=== PATIENT | female | born 1960 | race Caucasian/White ===

== ENCOUNTER 2023-05-31 19:30 | Emergency (ER) | payer OTHER, SELFPAY ==
[2023-05-31 19:34] VITALS: BP 170/85
--- NOTE | 2023-05-31 21:25 | ED.GENMED ---
History of Present Illness
General
Chief Complaint: Fall
Source: patient
Exam Limitations: none
Time Seen by Provider: 05/31/23 21:16
Nursing documentation reviewed up to this point in time: agreed with
Travel History
Have you had any contact with someone who has COVID-19?: No
Do you have any symptoms of coronavirus? Fever > 100 degrees, chills, cough, shortness of breath, sore throat, loss of taste or smell, muscle aches, or headache?: No
History of Present Illness
History of Present Illness:
Patient states she has had issues with her RLE for some time. She follow with neurology but has no diagnosis. States today while at work her leg gave out and she fell forward onto pavement. Hit face on pavement. No LOC. unable to get self up.
Assisted up by co-worker. Has abrasion to nose. complains of pain to her left forearm. Injury occurred just [place]
Past History
Past History
ED Past Medical History: Seizures, Psychiatric (Depression, anxiety, previous history of prescription drug abuse) and Other (obesity, migraine headaches chronic back pain, recurrent syncopal episodes, anxiety, kidney stones, cellulitis, Ulcers,
anemia); Negative HTN, Hypercholesterolemia or IDDM
ED Past Surgical History: Cholecystectomy and Other (gastric bypass, breast reduction)
Social History
Tobacco: Non-smoker
Alcohol: None
Drug: None
Personal:
Living: with family
Employment: Employed
Family History
Family History: CAD
Review of Systems
Review of Systems
Allergies reviewed?: Yes
All Other Systems: ROS reviewed and negative except as documented in HPI and ROS
Constitutional: Reports no symptoms
EENT: Reports no symptoms
Respiratory: Reports no symptoms
Cardiac: Reports no symptoms
ABD/GI: Reports no symptoms
Musculoskeletal: Reports joint pain (pain to left forearm)
Skin: Reports other (abrasion to nose)
Neurological: Reports headache
Psychiatric: Reports no symptoms
Phy Exam
General Physical Exam
General Presentation: well appearing and no apparent distress
General age: appears stated age
General Skin: warm and dry
General Habitus: normal
General Mental: alert
ENT Exam
ENT Exam: EOMI, neck supple, normocephalic and other (no epistaxis, no septal hematoma)
Eye Exam
Eye Exam: PERRL, EOMI, conjunctiva normal and globe normal
Neurological Exam
Neurological Exam: alert, oriented x3, CN II-XII intact, no motor deficits, no sensory deficits and speech normal
Musculoskeletal Exam
Musculoskeletal Exam: full ROM and neuro vasc intact
Skin Exam
Skin Exam: normal color, warm/dry and no rash
Psychiatric Exam
Psychiatric Exam: normal mood/affect
Course
Orders/Labs/Results
Orders:
Orders
05/31/23 19:33
Forearm, Left 2 View [CR Forearm - Left 2 View] Urgent
Comment:
Reason For Exam: fall/injury
05/31/23 21:25
CT Head W/o Iv Contrast Urgent
Comment:
Reason For Exam: fall
05/31/23 22:58
Acetaminophen [Tylenol] 1,000 mg PO NOW STA
Vital Signs
Initial and Last Documented VS:
Initial Vital Signs
Temp Pulse Resp BP Pulse Ox
98.1 F 83 15 170/85 100
05/31/23 19:34 05/31/23 19:34 05/31/23 19:34 05/31/23 19:34 05/31/23 19:34
Last Documented Vital Signs
Temp Pulse Resp BP Pulse Ox
98.1 F 79 12 112/65 100
05/31/23 19:34 05/31/23 23:15 05/31/23 23:15 05/31/23 23:00 05/31/23 19:34
*Radiology
Radiology exam reviewed: radiology read reviewed
*Pulse Oximetry
Patient hypoxic: no
*Critical Care Note
Total Time (30-74mins, 75-104mins- exclusive of procedures): Not Applicable
ED Attending Note
-
Portions of this chart may have been created with voice recognition software.� Occasional wrong word or��sound alike� substitutions may have occurred due to the inherent limitations of voice recognition software.
Discharge Plan
Departure
Patient Disposition: Home (Routine Discharge)
Date of Disposition: 05/31/23
Time of Disposition: 23:14
Patient with high blood pressure during this ER visit?: No
Condition: Good
Covid-19: Not Applicable
Discharge Problem:
Head injury
Instructions: Wound Care (DC), Head Injury in Adults (DC), Contusion (DC), Skin Abrasions (DC)
Prescriptions:
No Action
levetiracetam 500 MG tablet
500 mg PO BID Qty: 60 0RF
oxycodone-acetaminophen 5-300 mg tablet
1 tab PO Q8H PRN (Reason: pain) Qty: 7 0RF
Referrals:
Janett He CRNP [Family Provider] - Follow up in 2-3 days
Stand Alone Forms: Return to Work
Interventions
Interventions:
*Risk Screen - Suicide Last Done: 05/31/23 19:34
*General Assessment Last Done: 05/31/23 19:34
*Neglect/Abuse Screening Last Done: 05/31/23 19:34
ED- Fall Risk Assessment Last Done: 05/31/23 22:05
*ED COVID-19 Vaccine History Last Done: 05/31/23 19:34
*Nursing Disposition Last Done: 05/31/23 23:29
ED-Musculoskeletal Assessment Last Done: 05/31/23 22:05
ED- Neurological Assessment Last Done: 05/31/23 22:05
ED-Skin Assessment Last Done: 05/31/23 22:05
Discharge Date and Time
Discharge Date/Time: 05/31/23 23:29
Musculoskeletal Injury Exam
Musculoskeletal Injury Exam
Left forearm:
Pain with Movement?: Moderate
Tender to palpation?: Moderate
Soft tissue swelling?: None
External deformity and angulation?: None
Joint effusion?: None
Contusion?: Moderate
Hematoma-local bleeding into tissue?: None
Strain- Sprain- Tear (Connective tissue injury)?: Moderate
Crepitus with movement?: No
Joint instability?: No
Malalignment/deformity?: No
Range of motion: Full
Distal skin color and temperature: normal-warm & good color
Capillary Refill: normal
Normal distal neurovascular exam?: Yes
Skin Exam
Abrasion
Nose:
Description of abrasion: superfical/clean
[2023-05-31 22:00] VITALS: BP 141/93
[2023-05-31 22:05] VITALS: BMI 28.1
[2023-05-31 23:00] VITALS: BP 112/65
[2023-05-31] MEDS: TYLENOL 1000 MG PO (23:03)
== END 2023-05-31 23:29 | disposition home or self-care (01) ==
LOC: EMR 19:30
PROVIDERS: EMERGENCY PHYSICIAN Emergency Medicine; FAMILY PHYSICIAN Nurse Practitioner
DX: S09.90XA Unspecified injury of head, initial encounter (principal); S00.31XA Abrasion of nose, initial encounter; W19.XXXA Unspecified fall, initial encounter; G40.909 Epilepsy, unspecified, not intractable, without status epilepticus; F41.8 Other specified anxiety disorders; E66.9 Obesity, unspecified; D64.9 Anemia, unspecified
CPT/HCPCS: 99284; 70450; 73090

== ENCOUNTER 2023-07-24 06:46 | Emergency (ER) | payer OTHER, SELFPAY ==
[2023-07-24] VITALS (7 sets, daily range): BP systolic 105–151; BP diastolic 39–111; PULSE 64–72; BMI 28.1
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
[2023-07-24 08:19] LABS: % Basophils 0.7 % (0-2); % Eosinophils 2.8 % (0-6); % Immature Granulocytes 0.3 % (0-0.5); % Monocytes 10.7 % (1.7-9.3); % Neutrophils 64.5 % (42.2-75.2); Absolute Eosinophils 0.2 10^3/uL (0-0.7); Absolute Lymphocytes 1.2 10^3/uL (1.2-3.4); Absolute Monocytes 0.6 10^3/uL (0.1-0.6); Absolute Neutrophils 3.7 10^3/uL (1.4-6.5); Hematocrit 36.4 % (37.0-47.0); Hemoglobin 11.5 g/dL (12.0-16.0); Mean Corp Hgb Conc. 31.6 g/dL (33.0-37.0); Mean Corpuscular Hgb 30.8 pg (27.0-31.0); Mean Corpuscular Volume 97.6 fL (81.0-99.0); Mean Platelet Volume 11.6 fL (7.4-10.4); Nucleated Red Blood Cells % 0 %; Platelet Count 150 10^3/uL (130-400); Red Blood Cell Count 3.73 10^6/uL (4.20-5.40); Red Cell Dist. Width 12.9 % (11.5-14.5); White Blood Cell Count 5.8 10^3/uL (4.8-10.8)
[2023-07-24 08:31] LABS: ALT (SGPT) 108 U/L (0-35); AST (SGOT) 261 U/L (14-36); Albumin 4.2 g/dl (3.5-5.0); Alkaline Phosphatase 184 U/L (38-126); Blood Urea Nitrogen 16 mg/dl (7-17); Calcium 9.6 mg/dl (8.4-10.2); Carbon Dioxide 32 mmol/L (22-30); Chloride 104 mmol/L (98-107); Glucose 84 mg/dl (70-99); Magnesium 1.9 mg/dl (1.6-2.3); Potassium 4.3 mmol/L (3.5-5.1); Sodium 138 mmol/L (135-145); Total Bilirubin 1.1 mg/dl (0.2-1.3); Total Protein 6.7 g/dl (6.3-8.2); eGFR > 60.00
--- NOTE | 2023-07-24 09:11 | CM ---
Addendum entered by Chelsea Alonso RN 07/24/23 11:59:
Patient has been recommended for SNF. Patient would prefer to be discharged to home with home care. Patient is agreeable to referral to [facility]. Referral notice sent to [facility] via [employer].
Original Note:
CM reviewed medical records. Patient noted to have falls. CM will await PT evaluation for further discharge planning efforts.
[2023-07-24 10:15] LABS: Urine Albumin Negative (Neg - Trace); Urine Bilirubin Negative (Negative); Urine Character Clear (Clear); Urine Color Yellow; Urine Glucose Negative (Negative); Urine Ketone Negative (Negative); Urine Leukocyte Negative (Negative); Urine Nitrite Negative (Negative); Urine Occult Blood Negative (Negative); Urine Urobilinogen Negative (Neg - 1+)
--- NOTE | 2023-07-24 13:04 | VNURNOTE ---
Home Health Liaison spoke with patient at 1300 to discuss [facility] therapy, visits, schedule and homebound status. Patient is agreeable and understands that visits at home will be 2-3 x per week to assess and teach strengthening and balance at home.
Patient is aware that [facility] will contact her for start of care in 1-2 days after discharge from .
[facility] referral completed in [facility] Port.
[2023-07-25 14:55] LABS: Keppra (Levetiracetam) <2 ug/mL (10-40)
== END 2023-07-24 12:25 | disposition home or self-care (01) ==
LOC: EMR 06:46
PROVIDERS: Physician Assistant; EMERGENCY PHYSICIAN Emergency Medicine; FAMILY PHYSICIAN Nurse Practitioner
DX: S52.502A Unspecified fracture of the lower end of left radius, initial encounter for closed fracture (principal); W01.0XXA Fall on same level from slipping, tripping and stumbling without subsequent striking against object, initial encounter; R26.89 Other abnormalities of gait and mobility; R26.81 Unsteadiness on feet
CPT/HCPCS: 99285; 29125; 70450; 73110; 80053; 80177; 81003; 83735; 85025; 93005